=== PATIENT | male | born 2005 | race African-American/Black ===

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

== ENCOUNTER 2024-08-03 16:15 | Emergency (ER) | payer SELFPAY ==
[~2024-08-03] VITALS: Ht 180.3 cm; Wt 81.6 kg
[2024-08-03] MEDS ORDERED: ACETAMINOPHEN 325 MG TAB PO ONE (17:25)
[2024-08-03] MEDS ORDERED: diphenhydrAMINE hydrochloride 50 MG/ML VIAL IV ONE (17:30)
[2024-08-03] MEDS ORDERED: SODIUM CHLORIDE 0.9% 1,000 ML IV ONE (17:30)
[2024-08-03] MEDS ORDERED: Metoclopramide Hydrochloride 10 MG/2 ML VIAL IV ONE (17:30)
== END 2024-08-03 19:49 | disposition home or self-care (01) ==
LOC: ED 16:15
DX: B34.9 Viral infection, unspecified (principal); Z20.822 Contact with and (suspected) exposure to COVID-19; J45.909 Unspecified asthma, uncomplicated